=== PATIENT | male | born 1950 | race Caucasian/White ===

== ENCOUNTER 2017-10-26 21:28 | Outpatient (CLI) | payer MEDICARE | END 2017-10-26 21:29 | disposition critical access hospital (66) | LOC: EMS 21:28 | PROVIDERS: ATTEND Surgery | DX: R53.1 Weakness (principal) | CPT/HCPCS: A0425; A0429 ==

== ENCOUNTER 2017-10-26 21:38 | Emergency (ER) | payer MEDICARE ==
[2017-10-26] MEDS ORDERED: ACETAMINOPHEN 500 MG TABLET PO STA (22:06)
[2017-10-26] MEDS ORDERED: SODIUM CHLORIDE 0.9% 1,000 ML IV ONE (22:06)
[2017-10-26 22:44] LABS: BASOPHILS # (AUTO) 0.1 10^3/uL (0.0-0.1); BASOPHILS % (AUTO) 1.1 %; EOSINOPHILS # (AUTO) 0.2 10^3/uL (0.0-0.7); EOSINOPHILS % (AUTO) 2.6 %; HGB - HEMOGLOBIN 14.4 g/dL (14.0-18.0); LYMPHOCYTES # (AUTO) 0.7 10^3/uL (1.5-3.5); LYMPHOCYTES % (AUTO) 12.4 %; MEAN CORPUSCULAR HEMOGLOBIN 30.6 pg (27.0-31.0); MEAN CORPUSCULAR HGB CONC 34.5 g/dL (32.0-36.0); MEAN CORPUSCULAR VOLUME 88.8 fL (80.0-94.0); MEAN PLATELET VOLUME 7.9 fL (7.4-11.4); MONOCYTES # (AUTO) 0.6 10^3/uL (0.0-1.0); MONOCYTES % (AUTO) 9.8 %; NEUTROPHILS # (AUTO) 4.4 10^3/uL (1.5-6.6); NEUTROPHILS % (AUTO) 74.1 %; PLT - PLATELET COUNT 250 10^3/uL (130-450); RED BLOOD COUNT 4.72 10^6/uL (4.70-6.10); RED CELL DISTRIBUTION WIDTH 14.6 % (12.0-15.0); WHITE BLOOD COUNT 5.9 x10^3/uL (4.8-10.8)
--- NOTE | 2017-10-26 22:58 | XRAY Report ---
Reason: weakness Procedure Date: 10/26/2017 Accession Number: [id number] / [id number] Procedure: XR - Chest 2 View X-Ray CPT Code: 26547 FULL RESULT: EXAM: CHEST RADIOGRAPHY EXAM DATE: 10/26/2017 10:47 PM. CLINICAL HISTORY: Generalized weakness. Near syncope. COMPARISON: None. TECHNIQUE: 2 views. FINDINGS: Lungs/Pleura: Small lung volumes. Mild pulmonary vascular congestion. No alveolar consolidation or pleural effusion seen. No pneumothorax. Mediastinum: Mild cardiomegaly. Other: None. IMPRESSION: 1. Small lung volumes with cardiomegaly and mild pulmonary vascular congestion. RADIA
[2017-10-26 23:00] LABS: ALBUMIN 3.8 g/dL (3.2-5.5); ALBUMIN/GLOBULIN RATIO 1.3 (1.0-2.2); BILIRUBIN,TOTAL 1.5 mg/dL (0.2-1.0); CALCIUM 8.8 mg/dL (8.5-10.3); CREATININE 1.1 mg/dL (0.6-1.2); TOTAL PROTEIN 6.8 g/dL (6.7-8.2)
--- NOTE | 2017-10-26 23:13 | ED Physician Documentation ---
History of Present Illness - Stated complaint Stated Complaint: BILAT LOWER EXTREMITY WEAKNESS - Chief complaint Chief Complaint: Neuro - Additonal information Additional information: 67-year-old male presents the emergency department with complaints of generalized [place] patient [place] and has had 51 emergency department visit since March 06, 2017 [place] in multiple emergency departments.The patient also reports chronic pain in his extremities which ultimately is what made him weak today. The patient is denying head injury, neck pain, chest pain, racing heart , abdominal pain. No other symptoms. Symptoms are described as mild. No triggering factors. No other acute issues. Review of Systems Constitutional: denies: Fever, Chills Eyes: denies: Discharge Nose: denies: Congestion Throat: denies: Sore throat Cardiac: denies: Chest pain / pressure Respiratory: denies: Dyspnea GI: denies: Abdominal Pain Neurologic: denies: Generalized weakness Immunocompromised: denies: Chemotherapy PD PAST MEDICAL HISTORY - Past Medical History Past Medical History: Yes Psych: Depression, Anxiety - Past Surgical History Past Surgical History: Yes General: Hiatal hernia repair - Present Medications Home Medications: Ambulatory Orders Medication Instructions Recorded Confirmed No Known Home Medications [No 10/26/17 10/26/17 Known Home Medications] - Allergies Allergies/Adverse Reactions: Allergies Allergy/AdvReac Type Severity Reaction Status Date / Time Penicillins Allergy Unknown Verified 10/26/17 21:47 - Social History Does the pt smoke?: No Smoking Status: Never smoker Does the pt drink ETOH?: No Does the pt have substance abuse?: No - Immunizations Immunizations are current?: Yes - POLST Patient has POLST: No PD ED PE NORMAL - General General: Alert and oriented X 3, No acute distress - HEENT HEENT: Atraumatic, PERRL, EOMI, Ears normal - Neck Neck: No bony TTP - Cardiac Cardiac: RRR, Strong equal pulses - Respiratory Respiratory: No respiratory distress, Clear bilaterally - Abdomen Abdomen: Soft, Non tender - Derm Derm: No rash - Extremities Extremities: No deformity, No tenderness to palpate, Normal ROM s pain - Neuro Neuro: Alert and oriented X 3, No motor deficit, Normal speech - Psych Psych: Normal affect Results - Vitals Vitals: Vital Signs - 24 hr 10/26/17 21:43 Temperature 36.9 C Heart Rate 67 Respiratory 16 Rate Blood Pressure 157/86 H O2 Saturation 97 Oxygen O2 Source Room air - EKG (time done) 21:50 Rate: Rate (enter#) Rhythm: NSR Intervals: Normal WI, QRS normal Ischemia: Normal ST segments - Labs Labs: Laboratory Tests 10/26/17 10/26/17 10/26/17 22:34 22:34 22:34 WBC 5.9 RBC 4.72 Hgb 14.4 Hct 41.9 L MCV 88.8 MCH 30.6 MCHC 34.5 RDW 14.6 Plt Count 250 MPV 7.9 Neut # (Auto) 4.4 Lymph # (Auto) 0.7 L Emmet # (Auto) 0.6 Eos # (Auto) 0.2 Baso # (Auto) 0.1 Absolute Nucleated RBC 0.00 Nucleated RBC % 0.0 Sodium 135 Potassium 3.9 Chloride 103 Carbon Dioxide 24 Anion Gap 8.0 BUN 22 H Creatinine 1.1 Estimated GFR (MDRD) 67 L Glucose 114 H Calcium 8.8 Total Bilirubin 1.5 H AST 29 ALT 13 Alkaline Phosphatase 45 Total Creatine Kinase 381 H Troponin I < 0.04 Total Protein 6.8 Albumin 3.8 Globulin 3.0 Albumin/Globulin Ratio 1.3 Lipase 44 - Rads (name of study) CXR Radiology: Final report received PD MEDICAL DECISION MAKING - ED course ED course: The patient's workup shows no evidence of an acute emergency medical condition which would necessitate admission to the hospital or further workup in the emergency department. The patient appears appropriate for discharge. I advised follow-up with primary care. I discussed warning signs and recommended returning to the emergency department for any worsening or concerns. - Sepsis Event Vital Signs: Vital Signs - 24 hr 10/26/17 21:43 Temperature 36.9 C Heart Rate 67 Respiratory 16 Rate Blood Pressure 157/86 H O2 Saturation 97 Oxygen O2 Source Room air Departure - Departure Disposition: 01 Home, Self Care Clinical Impression: General weakness Chronic pain Qualifiers: Chronic pain type: other chronic pain Qualified Code(s): G89.29 - Other chronic pain Condition: Good Instructions: ED Chronic Pain Management, ED Weakness [facility] Comments: Please follow-up with primary care. Please return to the emergency department for worsening or any concerns
[2017-10-27 00:03] VITALS: BP 155/90
== END 2017-10-27 00:10 | disposition home or self-care (01) ==
LOC: ED 21:38
DX: M62.81 Muscle weakness (generalized) (principal); G89.29 Other chronic pain; M79.605 Pain in left leg; M79.604 Pain in right leg; Z59.0 Homelessness
CPT/HCPCS: 36415; 71046; 80053; 82550; 83690; 84484; 85025; 93005; 96360; 99283; A9270